=== PATIENT | male | born 1975 | race Caucasian/White ===

== ENCOUNTER 2022-04-07 09:18 | Inpatient (IN) | payer OTHER ==
[2022-04-07 09:48] VITALS: BMI 23.8
[2022-04-07] MEDS ORDERED: BENZOCAINE/MENTHOL (CHLORASEPTIC ) LOZENGE MM PRN (12:59)
[2022-04-07] MEDS ORDERED: hydrOXYzine PAMOATE 25 MG CAPSULE (FP) PO PRN (12:59)
[2022-04-07] MEDS ORDERED: P-EPHED 60MG/TRIPROLIDI 2.5MG TABLET PO PRN (12:59)
[2022-04-07] MEDS ORDERED: MAGNESIUM HYDROX 2400MG/30ML ORAL SUSPENSION 30 ML CUP PO PRN (12:59)
[2022-04-07] MEDS ORDERED: ACETAMINOPHEN 325 MG TABLET (FP) PO PRN (12:59)
[2022-04-07] MEDS ORDERED: POLYETHYLENE GLYCOL (HEALTHYLAX) 3350 17 GM PACKET PO PRN (12:59)
[2022-04-07] MEDS ORDERED: LOPERAMIDE HCL 2 MG CAPSULE PO PRN (12:59)
[2022-04-07] MEDS ORDERED: guaiFENesin 200 MG/10 ML 10 ML UNIT-DOSE CUPS PO PRN (12:59)
[2022-04-07] MEDS ORDERED: IBUPROFEN 400 MG TABLET (FP) PO PRN (12:59)
[2022-04-07] MEDS: THIAMINE HCL 100 MG TABLET (FP) PO SCH (21:56)
[2022-04-07] MEDS: QUEtiapine FUMARATE 50 MG TABLET PO SCH (21:56)
[2022-04-07] MEDS: DOLUTEGRAVIR SODIUM 50 MG TABLET (NON-FORMULARY) PO SCH (21:57)
[2022-04-07] MEDS ORDERED: MELATONIN 5 MG TABLETS PO SCH (22:00)
[2022-04-07] MEDS ORDERED: MIRTAZAPINE 15 MG TABLET (FP) PO SCH (22:00)
[2022-04-08] MEDS: PRENATAL VITAMINS W/ FOLIC ACID TABLET (FP) PO SCH (09:32)
[2022-04-08] MEDS: TAMSULOSIN HCL 0.4 MG CAP PO SCH (09:32)
[2022-04-08] MEDS: DOLUTEGRAVIR SODIUM 50 MG TABLET (NON-FORMULARY) PO SCH (09:33)
[2022-04-08] MEDS ORDERED: EMTRICITABINE/TENOFOV ALAFENAM (DESCOVY) TABLET PO SCH (10:00)
[2022-04-08 10:44] LABS: HEMATOCRIT 44.8 % (35.4-49); HEMOGLOBIN 14.9 GM/dL (11.7-16.9); MCH 32.2 pg (25.7-33.7); MCHC 33.3 g/dl (32.0-35.9); MEAN CELL VOLUME 96.7 fl (80-96); MEAN PLT VOLUME 8.1 fl (7.5-11.1); PLATELET COUNT 315 10^3/uL (134-434); RBC 4.63 M/mm3 (4.00-5.60); RDW 13.4 % (11.9-15.9); WHITE BLOOD COUNT 3.8 K/mm3 (4.0-10.0)
[2022-04-08 11:14] LABS: ALBUMIN 3.4 g/dl (3.4-5.0); BLOOD UREA NITROGEN 15.2 mg/dL (7-18)
[2022-04-08 11:17] LABS: CREATININE 1.1 mg/dL (0.55-1.3)
[2022-04-08 11:18] LABS: BILIRUBIN,TOTAL 0.6 mg/dL (0.2-1); TOT PROT 6.5 g/dl (6.4-8.2)
[2022-04-08] MEDS: THIAMINE HCL 100 MG TABLET (FP) PO SCH (21:51)
[2022-04-08] MEDS: DOLUTEGRAVIR SODIUM 50 MG PO SCH (21:51)
[2022-04-08] MEDS: QUEtiapine FUMARATE 50 MG TABLET PO SCH (21:51)
[2022-04-08] MEDS: MIRTAZAPINE 15 MG PO SCH (21:51)
[2022-04-09] MEDS: TAMSULOSIN HCL 0.4 MG CAP PO SCH (09:46)
[2022-04-09] MEDS: PRENATAL VITAMINS W/ FOLIC ACID TABLET (FP) PO SCH (09:46)
[2022-04-09] MEDS: DOLUTEGRAVIR SODIUM 50 MG PO SCH ×2 (09:47→21:46)
[2022-04-09] MEDS: PATIENT,S OWN MED:EMTRICITABINE/TENOFOV ALAFENAM (DESCOVY) TABLET PO SCH (09:47)
[2022-04-09] MEDS: THIAMINE HCL 100 MG TABLET (FP) PO SCH (21:46)
[2022-04-09] MEDS: MIRTAZAPINE 15 MG PO SCH (21:46)
[2022-04-09] MEDS: QUEtiapine FUMARATE 50 MG TABLET PO SCH (21:46)
[2022-04-09] MEDS: MAG HYDROX/AL HYDROX/SIMETH 30 ML UNIT-DOSE CUP PO PRN (21:48)
[2022-04-10] MEDS: PRENATAL VITAMINS W/ FOLIC ACID TABLET (FP) PO SCH (09:38)
[2022-04-10] MEDS: TAMSULOSIN HCL 0.4 MG CAP PO SCH (09:38)
[2022-04-10] MEDS: DOLUTEGRAVIR SODIUM 50 MG PO SCH ×2 (09:38→21:11)
[2022-04-10] MEDS: PATIENT,S OWN MED:EMTRICITABINE/TENOFOV ALAFENAM (DESCOVY) TABLET PO SCH (09:39)
[2022-04-10] MEDS: MIRTAZAPINE 15 MG PO SCH (21:11)
[2022-04-10] MEDS: QUEtiapine FUMARATE 50 MG TABLET PO SCH (21:11)
[2022-04-10] MEDS: THIAMINE HCL 100 MG TABLET (FP) PO SCH (21:11)
[2022-04-11] MEDS: PRENATAL VITAMINS W/ FOLIC ACID TABLET (FP) PO SCH (09:44)
[2022-04-11] MEDS: TAMSULOSIN HCL 0.4 MG CAP PO SCH (09:44)
[2022-04-11] MEDS: DOLUTEGRAVIR SODIUM 50 MG PO SCH ×2 (09:45→21:13)
[2022-04-11] MEDS: PATIENT,S OWN MED:EMTRICITABINE/TENOFOV ALAFENAM (DESCOVY) TABLET PO SCH (09:45)
[2022-04-11 10:06] LABS: PH,URINE 6.5 (5.0-8.0); URINE APPEARANCE CLEAR; URINE BILIRUBIN NEGATIVE (NEGATIVE); URINE COLOR YELLOW; URINE GLUCOSE (UA) NEGATIVE (NEGATIVE); URINE KETONE NEGATIVE (NEGATIVE); URINE LEUK ESTERASE NEGATIVE (NEGATIVE); URINE NITRITE NEGATIVE (NEGATIVE); URINE PROTEIN NEGATIVE (NEGATIVE); URINE UROBILINOGEN 0.2 mg/dL (0.2-1.0)
[2022-04-11] MEDS ORDERED: TUBERCULIN PPD 5 TU/0.1ML VIAL ID ONE (14:14)
[2022-04-11] MEDS: QUEtiapine FUMARATE 50 MG TABLET PO SCH (21:13)
[2022-04-11] MEDS: MIRTAZAPINE 15 MG PO SCH (21:13)
[2022-04-11] MEDS: THIAMINE HCL 100 MG TABLET (FP) PO SCH (21:13)
[2022-04-12] MEDS: PRENATAL VITAMINS W/ FOLIC ACID TABLET (FP) PO SCH (09:36)
[2022-04-12] MEDS: TAMSULOSIN HCL 0.4 MG CAP PO SCH (09:36)
[2022-04-12] MEDS: PATIENT,S OWN MED:EMTRICITABINE/TENOFOV ALAFENAM (DESCOVY) TABLET PO SCH (09:37)
[2022-04-12] MEDS: DOLUTEGRAVIR SODIUM 50 MG PO SCH ×2 (09:38→21:49)
[2022-04-12] MEDS ORDERED: PENICILLIN G BENZATHINE 2,400,000 UNIT/4 ML PFS IM ONE (14:01)
[2022-04-12] MEDS: MIRTAZAPINE 15 MG PO SCH (21:50)
[2022-04-12] MEDS: THIAMINE HCL 100 MG TABLET (FP) PO SCH (21:50)
[2022-04-12] MEDS: QUEtiapine FUMARATE 50 MG TABLET PO SCH (21:50)
[2022-04-12] MEDS: MAG HYDROX/AL HYDROX/SIMETH 30 ML UNIT-DOSE CUP PO PRN (23:19)
[2022-04-13] MEDS: PATIENT,S OWN MED:EMTRICITABINE/TENOFOV ALAFENAM (DESCOVY) TABLET PO SCH (09:42)
[2022-04-13] MEDS: TAMSULOSIN HCL 0.4 MG CAP PO SCH (09:42)
[2022-04-13] MEDS: DOLUTEGRAVIR SODIUM 50 MG PO SCH ×2 (09:42→22:10)
[2022-04-13] MEDS: PRENATAL VITAMINS W/ FOLIC ACID TABLET (FP) PO SCH (09:42)
[2022-04-13] MEDS: MAG HYDROX/AL HYDROX/SIMETH 30 ML UNIT-DOSE CUP PO PRN (18:36)
[2022-04-13] MEDS: QUEtiapine FUMARATE 50 MG TABLET PO SCH (22:10)
[2022-04-13] MEDS: THIAMINE HCL 100 MG TABLET (FP) PO SCH (22:10)
[2022-04-13] MEDS: MIRTAZAPINE 15 MG PO SCH (22:10)
[2022-04-14] MEDS: PRENATAL VITAMINS W/ FOLIC ACID TABLET (FP) PO SCH (09:38)
[2022-04-14] MEDS: TAMSULOSIN HCL 0.4 MG CAP PO SCH (09:38)
[2022-04-14] MEDS: PATIENT,S OWN MED:EMTRICITABINE/TENOFOV ALAFENAM (DESCOVY) TABLET PO SCH (09:38)
[2022-04-14] MEDS: DOLUTEGRAVIR SODIUM 50 MG PO SCH ×2 (09:38→22:34)
[2022-04-14] MEDS: MAG HYDROX/AL HYDROX/SIMETH 30 ML UNIT-DOSE CUP PO PRN (19:49)
[2022-04-14] MEDS: QUEtiapine FUMARATE 50 MG TABLET PO SCH (22:34)
[2022-04-14] MEDS: THIAMINE HCL 100 MG TABLET (FP) PO SCH (22:34)
[2022-04-14] MEDS: MIRTAZAPINE 15 MG PO SCH (22:34)
[2022-04-15] MEDS: PRENATAL VITAMINS W/ FOLIC ACID TABLET (FP) PO SCH (09:35)
[2022-04-15] MEDS: TAMSULOSIN HCL 0.4 MG CAP PO SCH (09:36)
[2022-04-15] MEDS: DOLUTEGRAVIR SODIUM 50 MG PO SCH ×2 (09:36→21:53)
[2022-04-15] MEDS: PATIENT,S OWN MED:EMTRICITABINE/TENOFOV ALAFENAM (DESCOVY) TABLET PO SCH (09:36)
[2022-04-15] MEDS: THIAMINE HCL 100 MG TABLET (FP) PO SCH (21:53)
[2022-04-15] MEDS: MIRTAZAPINE 15 MG PO SCH (21:53)
[2022-04-15] MEDS: QUEtiapine FUMARATE 50 MG TABLET PO SCH (21:53)
[2022-04-15] MEDS: MAG HYDROX/AL HYDROX/SIMETH 30 ML UNIT-DOSE CUP PO PRN (22:02)
[2022-04-16] MEDS: PRENATAL VITAMINS W/ FOLIC ACID TABLET (FP) PO SCH (09:49)
[2022-04-16] MEDS: TAMSULOSIN HCL 0.4 MG CAP PO SCH (09:49)
[2022-04-16] MEDS: DOLUTEGRAVIR SODIUM 50 MG PO SCH ×2 (09:50→21:45)
[2022-04-16] MEDS: PATIENT,S OWN MED:EMTRICITABINE/TENOFOV ALAFENAM (DESCOVY) TABLET PO SCH (09:50)
[2022-04-16] MEDS: QUEtiapine FUMARATE 50 MG TABLET PO SCH (21:45)
[2022-04-16] MEDS: MIRTAZAPINE 15 MG PO SCH (21:45)
[2022-04-16] MEDS: THIAMINE HCL 100 MG TABLET (FP) PO SCH (21:45)
[2022-04-16] MEDS: MAG HYDROX/AL HYDROX/SIMETH 30 ML UNIT-DOSE CUP PO PRN (21:46)
[2022-04-17] MEDS: PATIENT,S OWN MED:EMTRICITABINE/TENOFOV ALAFENAM (DESCOVY) TABLET PO SCH (09:45)
[2022-04-17] MEDS: TAMSULOSIN HCL 0.4 MG CAP PO SCH (09:45)
[2022-04-17] MEDS: DOLUTEGRAVIR SODIUM 50 MG PO SCH ×2 (09:45→22:01)
[2022-04-17] MEDS: PRENATAL VITAMINS W/ FOLIC ACID TABLET (FP) PO SCH (09:45)
[2022-04-17] MEDS: MIRTAZAPINE 15 MG PO SCH (22:00)
[2022-04-17] MEDS: THIAMINE HCL 100 MG TABLET (FP) PO SCH (22:00)
[2022-04-17] MEDS: QUEtiapine FUMARATE 50 MG TABLET PO SCH (22:00)
[2022-04-18] MEDS: TAMSULOSIN HCL 0.4 MG CAP PO SCH (09:55)
[2022-04-18] MEDS: PRENATAL VITAMINS W/ FOLIC ACID TABLET (FP) PO SCH (09:55)
[2022-04-18] MEDS: DOLUTEGRAVIR SODIUM 50 MG PO SCH ×2 (09:55→21:51)
[2022-04-18] MEDS: PATIENT,S OWN MED:EMTRICITABINE/TENOFOV ALAFENAM (DESCOVY) TABLET PO SCH (09:56)
[2022-04-18] MEDS: MIRTAZAPINE 15 MG PO SCH (21:51)
[2022-04-18] MEDS: THIAMINE HCL 100 MG TABLET (FP) PO SCH (21:51)
[2022-04-18] MEDS: QUEtiapine FUMARATE 50 MG TABLET PO SCH (21:51)
[2022-04-19] MEDS: PATIENT,S OWN MED:EMTRICITABINE/TENOFOV ALAFENAM (DESCOVY) TABLET PO SCH (09:44)
[2022-04-19] MEDS: PRENATAL VITAMINS W/ FOLIC ACID TABLET (FP) PO SCH (09:44)
[2022-04-19] MEDS: TAMSULOSIN HCL 0.4 MG CAP PO SCH (09:44)
[2022-04-19] MEDS: DOLUTEGRAVIR SODIUM 50 MG PO SCH ×2 (09:44→21:43)
[2022-04-19] MEDS: THIAMINE HCL 100 MG TABLET (FP) PO SCH (21:42)
[2022-04-19] MEDS: QUEtiapine FUMARATE 50 MG TABLET PO SCH (21:42)
[2022-04-19] MEDS: MIRTAZAPINE 15 MG PO SCH (21:42)
[2022-04-20] MEDS: PATIENT,S OWN MED:EMTRICITABINE/TENOFOV ALAFENAM (DESCOVY) TABLET PO SCH (09:49)
[2022-04-20] MEDS: PRENATAL VITAMINS W/ FOLIC ACID TABLET (FP) PO SCH (09:49)
[2022-04-20] MEDS: TAMSULOSIN HCL 0.4 MG CAP PO SCH (09:49)
[2022-04-20] MEDS: DOLUTEGRAVIR SODIUM 50 MG PO SCH ×2 (09:50→22:43)
[2022-04-20] MEDS: THIAMINE HCL 100 MG TABLET (FP) PO SCH (22:42)
[2022-04-20] MEDS: QUEtiapine FUMARATE 50 MG TABLET PO SCH (22:42)
[2022-04-20] MEDS: MIRTAZAPINE 15 MG PO SCH (22:43)
[2022-04-21] MEDS: TAMSULOSIN HCL 0.4 MG CAP PO SCH (10:04)
[2022-04-21] MEDS: DOLUTEGRAVIR SODIUM 50 MG PO SCH ×2 (10:04→21:53)
[2022-04-21] MEDS: PATIENT,S OWN MED:EMTRICITABINE/TENOFOV ALAFENAM (DESCOVY) TABLET PO SCH (10:04)
[2022-04-21] MEDS: PRENATAL VITAMINS W/ FOLIC ACID TABLET (FP) PO SCH (10:04)
[2022-04-21] MEDS: MIRTAZAPINE 15 MG PO SCH (21:53)
[2022-04-21] MEDS: QUEtiapine FUMARATE 50 MG TABLET PO SCH (21:53)
[2022-04-21] MEDS: THIAMINE HCL 100 MG TABLET (FP) PO SCH (21:53)
[2022-04-22] MEDS: TAMSULOSIN HCL 0.4 MG CAP PO SCH (09:57)
[2022-04-22] MEDS: PRENATAL VITAMINS W/ FOLIC ACID TABLET (FP) PO SCH (09:57)
[2022-04-22] MEDS: PATIENT,S OWN MED:EMTRICITABINE/TENOFOV ALAFENAM (DESCOVY) TABLET PO SCH (09:58)
[2022-04-22] MEDS: DOLUTEGRAVIR SODIUM 50 MG PO SCH ×2 (09:58→21:42)
[2022-04-22] MEDS: QUEtiapine FUMARATE 50 MG TABLET PO SCH (21:42)
[2022-04-22] MEDS: MIRTAZAPINE 15 MG PO SCH (21:42)
[2022-04-22] MEDS: THIAMINE HCL 100 MG TABLET (FP) PO SCH (21:42)
[2022-04-23] MEDS: DOLUTEGRAVIR SODIUM 50 MG PO SCH ×2 (09:58→21:43)
[2022-04-23] MEDS: TAMSULOSIN HCL 0.4 MG CAP PO SCH (09:58)
[2022-04-23] MEDS: PATIENT,S OWN MED:EMTRICITABINE/TENOFOV ALAFENAM (DESCOVY) TABLET PO SCH (09:58)
[2022-04-23] MEDS: PRENATAL VITAMINS W/ FOLIC ACID TABLET (FP) PO SCH (09:58)
[2022-04-23] MEDS: QUEtiapine FUMARATE 50 MG TABLET PO SCH (21:43)
[2022-04-23] MEDS: MIRTAZAPINE 15 MG PO SCH (21:43)
[2022-04-23] MEDS: THIAMINE HCL 100 MG TABLET (FP) PO SCH (21:43)
[2022-04-24] MEDS: TAMSULOSIN HCL 0.4 MG CAP PO SCH (10:03)
[2022-04-24] MEDS: PRENATAL VITAMINS W/ FOLIC ACID TABLET (FP) PO SCH (10:03)
[2022-04-24] MEDS: PATIENT,S OWN MED:EMTRICITABINE/TENOFOV ALAFENAM (DESCOVY) TABLET PO SCH (10:03)
[2022-04-24] MEDS: DOLUTEGRAVIR SODIUM 50 MG PO SCH ×2 (10:03→21:51)
[2022-04-24] MEDS: TOLNAFTATE 1% CREAM 15 GM TUBE TP SCH ×2 (11:14→21:52)
[2022-04-24] MEDS: QUEtiapine FUMARATE 50 MG TABLET PO SCH (21:51)
[2022-04-24] MEDS: MIRTAZAPINE 15 MG PO SCH (21:51)
[2022-04-24] MEDS: THIAMINE HCL 100 MG TABLET (FP) PO SCH (21:51)
[2022-04-25] MEDS: PRENATAL VITAMINS W/ FOLIC ACID TABLET (FP) PO SCH (10:18)
[2022-04-25] MEDS: PATIENT,S OWN MED:EMTRICITABINE/TENOFOV ALAFENAM (DESCOVY) TABLET PO SCH (10:19)
[2022-04-25] MEDS: DOLUTEGRAVIR SODIUM 50 MG PO SCH ×2 (10:19→22:02)
[2022-04-25] MEDS: TAMSULOSIN HCL 0.4 MG CAP PO SCH (10:19)
[2022-04-25] MEDS: TOLNAFTATE 1% CREAM 15 GM TUBE TP SCH ×2 (10:20→22:04)
[2022-04-25] MEDS: THIAMINE HCL 100 MG TABLET (FP) PO SCH (22:02)
[2022-04-25] MEDS: QUEtiapine FUMARATE 50 MG TABLET PO SCH (22:02)
[2022-04-25] MEDS: MIRTAZAPINE 15 MG PO SCH (22:02)
[2022-04-25] MEDS: MAG HYDROX/AL HYDROX/SIMETH 30 ML UNIT-DOSE CUP PO PRN (22:04)
[2022-04-26] MEDS: PRENATAL VITAMINS W/ FOLIC ACID TABLET (FP) PO SCH (09:52)
[2022-04-26] MEDS: TOLNAFTATE 1% CREAM 15 GM TUBE TP SCH ×2 (09:53→21:09)
[2022-04-26] MEDS: PATIENT,S OWN MED:EMTRICITABINE/TENOFOV ALAFENAM (DESCOVY) TABLET PO SCH (09:53)
[2022-04-26] MEDS: TAMSULOSIN HCL 0.4 MG CAP PO SCH (09:53)
[2022-04-26] MEDS: DOLUTEGRAVIR SODIUM 50 MG PO SCH ×2 (09:53→21:31)
[2022-04-26] MEDS: MAG HYDROX/AL HYDROX/SIMETH 30 ML UNIT-DOSE CUP PO PRN (19:56)
[2022-04-26] MEDS: QUEtiapine FUMARATE 50 MG TABLET PO SCH (21:31)
[2022-04-26] MEDS: MIRTAZAPINE 15 MG PO SCH (21:31)
[2022-04-26] MEDS: THIAMINE HCL 100 MG TABLET (FP) PO SCH (21:31)
[2022-04-27] MEDS: PRENATAL VITAMINS W/ FOLIC ACID TABLET (FP) PO SCH (09:44)
[2022-04-27] MEDS: DOLUTEGRAVIR SODIUM 50 MG PO SCH ×2 (09:44→21:54)
[2022-04-27] MEDS: TAMSULOSIN HCL 0.4 MG CAP PO SCH (09:44)
[2022-04-27] MEDS: PATIENT,S OWN MED:EMTRICITABINE/TENOFOV ALAFENAM (DESCOVY) TABLET PO SCH (09:45)
[2022-04-27] MEDS: TOLNAFTATE 1% CREAM 15 GM TUBE TP SCH ×2 (09:46→20:18)
[2022-04-27] MEDS: MAG HYDROX/AL HYDROX/SIMETH 30 ML UNIT-DOSE CUP PO PRN (20:18)
[2022-04-27] MEDS: QUEtiapine FUMARATE 50 MG TABLET PO SCH (21:54)
[2022-04-27] MEDS: THIAMINE HCL 100 MG TABLET (FP) PO SCH (21:54)
[2022-04-27] MEDS: MIRTAZAPINE 15 MG PO SCH (21:54)
[2022-04-28 07:00] VITALS: RESP 18
[2022-04-28] MEDS: TAMSULOSIN HCL 0.4 MG CAP PO SCH (09:57)
[2022-04-28] MEDS: PATIENT,S OWN MED:EMTRICITABINE/TENOFOV ALAFENAM (DESCOVY) TABLET PO SCH (09:57)
[2022-04-28] MEDS: DOLUTEGRAVIR SODIUM 50 MG PO SCH ×2 (09:57→21:59)
[2022-04-28] MEDS: PRENATAL VITAMINS W/ FOLIC ACID TABLET (FP) PO SCH (09:57)
[2022-04-28] MEDS: TOLNAFTATE 1% CREAM 15 GM TUBE TP SCH ×2 (09:58→21:20)
[2022-04-28] MEDS: MAG HYDROX/AL HYDROX/SIMETH 30 ML UNIT-DOSE CUP PO PRN (14:09)
[2022-04-28] MEDS: THIAMINE HCL 100 MG TABLET (FP) PO SCH (21:59)
[2022-04-28] MEDS: QUEtiapine FUMARATE 50 MG TABLET PO SCH (21:59)
[2022-04-28] MEDS: MIRTAZAPINE 15 MG PO SCH (21:59)
[2022-04-29 08:16] VITALS: BP 134/86; PULSE 85; TEMP 97.8
[2022-04-29] MEDS: TAMSULOSIN HCL 0.4 MG CAP PO SCH (09:38)
[2022-04-29] MEDS: DOLUTEGRAVIR SODIUM 50 MG PO SCH (09:38)
[2022-04-29] MEDS: PATIENT,S OWN MED:EMTRICITABINE/TENOFOV ALAFENAM (DESCOVY) TABLET PO SCH (09:38)
[2022-04-29] MEDS: PRENATAL VITAMINS W/ FOLIC ACID TABLET (FP) PO SCH (09:38)
[2022-04-29] MEDS: TOLNAFTATE 1% CREAM 15 GM TUBE TP SCH (09:40)
== END 2022-04-29 09:50 | disposition home or self-care (01) | DRG 772 ==
LOC: YASAS 09:18 → SUATTDRO 09:18 → Y5N 12:49
PROVIDERS: ADMIT Allergy & Immunology; ATTEND Psychiatry & Neurology Pain Medicine
PROC: HZ42ZZZ Group Counseling for Substance Abuse Treatment, Cognitive-Behavioral (ICD-10-PCS; principal; 2022-04-07)
DX: F10.20 Alcohol dependence, uncomplicated (principal); F15.20 Other stimulant dependence, uncomplicated; F17.210 Nicotine dependence, cigarettes, uncomplicated; F19.282 Other psychoactive substance dependence with psychoactive substance-induced sleep disorder; F32.A Depression, unspecified; Z21 Asymptomatic human immunodeficiency virus [HIV] infection status; J45.909 Unspecified asthma, uncomplicated; N40.0 Benign prostatic hyperplasia without lower urinary tract symptoms; B35.3 Tinea pedis; Z62.810 Personal history of physical and sexual abuse in childhood; Z86.19 Personal history of other infectious and parasitic diseases
CPT/HCPCS: 36415; 80053; 81003; 85027; 86593; 86780; 86803; 87811; 93005; 93010; C9803-CS; U0003; U0005